=== PATIENT | male | born 1985 | race Caucasian/White ===

== ENCOUNTER 2021-05-09 15:01 | Emergency (ER) | payer BC, SELFPAY ==
[2021-05-09 15:16] VITALS: BP 141/81; PULSE 92; RESP 16; TEMP 37.3; O2SAT 100
--- NOTE | 2021-05-09 15:22 | ED.EXTPRO ---
HPI - Extremity Problem General Chief complaint: Extremity Problem,Nontraumatic Stated complaint: Left Toe Pain Time Seen by Provider: 05/09/21 15:23 Source: patient and family History of Present Illness HPI Narrative: HX GOUT. PRESENTS WITH LEFT GREAT TOE PAIN FOR THE PAST WEEK. Related Data Home Medications Medication Instructions Recorded Confirmed [id number] 1 tablet PO DAILY 03/09/19 05/09/21 omeprazole 40 mg PO DAILY 03/09/19 05/09/21 Allergies Allergy/AdvReac Type Severity Reaction Status Date / Time cefaclor [From [facility]] Allergy Rash Verified 05/09/21 15:21 Review of Systems Review of Systems: CONSTITUTIONAL: Denies fever, chills, or sweats. EYES: Denies visual changes, redness, or discharge. ENT: Denies rhinorrhea, congestion, sore throat, or otalgia. CARDIOVASCULAR: Denies chest pain, palpitations, or edema. RESPIRATORY: Denies cough or dyspnea. GASTROINTESTINAL: Denies abdominal pain, nausea, vomiting, or diarrhea. GENITOURINARY: Denies dysuria or hematuria. SKIN: Denies rash or itching. MUSCULOSKELETAL: Denies back pain, joint pain, or myalgia. NEUROLOGIC: Denies headache, numbness, or weakness. PSYCHIATRIC: Denies anxiety or depression. PMFSH Comments At time of signature, agree with nursing past medical, surgical, social and family history. There is no relevant family history pertinent to the presenting complaint Exam Narrative: GENERAL: Well-appearing, well-nourished, and in no acute distress. HEAD: Normocephalic, atraumatic. EYES: PERRLA and EOMI. ENT: Nares clear, no rhinorrhea or epistaxis. Mucous membranes moist. NECK: Supple. CHEST: Clear to auscultation. No respiratory distress. HEART: Regular rate and rhythm. No murmur heard. Normal peripheral pulses. ABDOMEN: Soft, nontender, nondistended, normal active bowel sounds. EXTREMITIES: Normal range of motion. No edema. Left great toe swollen tender to touch warm to touch consistent with gout flare SKIN: Warm, dry, no rash. NEURO: No focal deficits. Alert and oriented x3. [place] Coma Scale Eye Opening: Spontaneous 4 [place] Coma Scale Motor: Obeys Commands 6 [place] Coma Scale Verbal: Oriented 5 [place] Coma Scale Total 15 Course Course Level of Care: Express Care Visit Vital Signs Vital signs: Vital Signs Temperature 37.3 C 05/09/21 15:16 Pulse Rate 92 05/09/21 15:16 Respiratory Rate 16 05/09/21 15:16 Blood Pressure 141/81 H 05/09/21 15:16 Pulse Oximetry 100 05/09/21 15:16 Temperature 37.3 C 05/09/21 15:16 Pulse Rate 92 05/09/21 15:16 Respiratory Rate 16 05/09/21 15:16 Blood Pressure 141/81 H 05/09/21 15:16 Pulse Oximetry 100 05/09/21 15:16 Addressed elevated BP today. Today's blood pressure higher than recommended range. Discussed importance of follow -up with PCP and possible long term care administrator effects/cardiovascular events related to HTN. Currently patient denies headache, dizziness, vision changes, CP or shortness of breath. Critical dx considered and discussed with pt. Educated patient on red flag s/s and to go to ED if s/s occur. Discussed with pt when to return to Express Care or primary care provider. Pt gave verbal undertstanding, all questions were answered, and pt was agreeable to plan Critical Care Time Critical Care Time Critical Care Time: No Discharge Plan Discharge Clinical Impression: Gout Patient Disposition: Home, Self-Care Condition: Stable Instructions: Antibiotic Form, Low Purine Diet (ED), Gout (ED) Additional Instructions: Take medication as prescribed with food until gone Do not take ibuprofen while taking prescription medication Follow gout diet INCREASE FLUIDS Follow-up with primary care provider as needed If any new or worsening symptoms go to ER immediately further evaluation Prescriptions: New indomethacin 50 mg capsule 50 mg PO TID 5 Days Qty: 15 RF: 0 No Action omeprazole 40 mg Capsule,Delayed Release(Dr/Ec) 40 m
== END 2021-05-09 15:34 | disposition home or self-care (01) ==
PROVIDERS: Emergency Provider Nurse Practitioner Family; PCP Internal Medicine
DX: M10.9 Gout, unspecified (principal); K21.9 Gastro-esophageal reflux disease without esophagitis; I10 Essential (primary) hypertension
CPT/HCPCS: 99213; G0463

== ENCOUNTER 2021-05-11 10:45 | Emergency (ER) | payer BC, SELFPAY ==
--- NOTE | ~2021-05-11 | XR_ITS ---
EXAMINATION: XR toe 1st LT min 2V DATE: 05/11/2021 11:29 INDICATION: Left great toe pain. TECHNIQUE: 3 views of left great toe were obtained. COMPARISON: None. FINDINGS: Bone alignment is normal. No fracture. There is mild osteoarthritis of first metatarsophala ngeal joint. IMPRESSION: 1. Mild osteoarthritis of first metatarsophalangeal joint. Reviewed, dictated and finalized at location [facility]
[2021-05-11 10:54] VITALS: BP 149/93; PULSE 89; RESP 20; TEMP 36.8; O2SAT 100
--- NOTE | 2021-05-11 11:33 | ED.LOWEXIN ---
HPI - Extremity Injury (Lower) General Chief Complaint: Extremity Injury, Lower Stated Complaint: gout (was here Tuesday) Time Seen by Provider: 05/11/21 11:33 Source: patient History of Present Illness HPI Narrative: patient was here 2 days ago and diagnosed with gout. Patient has a history of gout and was started on Indomethacin. patient returns today with continued pain and discomfort to toe. Patient denies any injury. Patient denies any Relief with medication. Injury: Left: toes (great toe) Related Data Home Medications Medication Instructions Recorded Confirmed [id number]-[id number]-[id number] 1 tablet PO DAILY 03/09/19 05/11/21 omeprazole 40 mg PO DAILY 03/09/19 05/11/21 valsartan-hydrochlorothiazide 1 tablet PO DAILY 05/11/21 05/11/21 Allergies Allergy/AdvReac Type Severity Reaction Status Date / Time cefaclor [From [facility]] Allergy Intermediate Rash Verified 05/11/21 11:00 Review of Systems Review of Systems: CONSTITUTIONAL: Denies fever, chills, or sweats. EYES: Denies visual changes, redness, or discharge. ENT: Denies rhinorrhea, congestion, sore throat, or otalgia. CARDIOVASCULAR: Denies chest pain, palpitations, or edema. RESPIRATORY: Denies cough or dyspnea. GASTROINTESTINAL: Denies abdominal pain, nausea, vomiting, or diarrhea. GENITOURINARY: Denies dysuria or hematuria. SKIN: Denies rash or itching. MUSCULOSKELETAL: Denies back pain, joint pain, or myalgia. NEUROLOGIC: Denies headache, numbness, or weakness. PSYCHIATRIC: Denies anxiety or depression. PMFSH Comments At time of signature, agree with nursing past medical, surgical, social and family history. There is no relevant family history pertinent to the presenting complaint Exam Narrative: GENERAL: Well-appearing, well-nourished, and in no acute distress. HEAD: Normocephalic, atraumatic. EYES: PERRLA and EOMI. ENT: Nares clear, no rhinorrhea or epistaxis. Mucous membranes moist. NECK: Supple. CHEST: Clear to auscultation. No respiratory distress. HEART: Regular rate and rhythm. No murmur heard. Normal peripheral pulses. ABDOMEN: Soft, nontender, nondistended, normal active bowel sounds. EXTREMITIES: Normal range of motion. No edema. ANKLE EXAM SKIN INTACT. NORMAL DP PULSE, NORMAL CAP REFILL. NORMAL SENSATION.swelling to left great toe dip joint. SKIN: Warm, dry, no rash. NEURO: No focal deficits. Alert and oriented x3. [place] Coma Scale Eye Opening: Spontaneous 4 [place] Coma Scale Motor: Obeys Commands 6 [place] Coma Scale Verbal: Oriented 5 [place] Coma Scale Total 15 Extrem: Ankle/foot/toe images: 1. swelling tenderness warm to touch Course Course Level of Care: Express Care Visit Vital Signs Vital signs: Vital Signs Temperature 36.8 C 05/11/21 10:54 Pulse Rate 89 05/11/21 10:54 Respiratory Rate 20 05/11/21 10:54 Blood Pressure 149/93 H 05/11/21 10:54 Pulse Oximetry 100 05/11/21 10:54 Temperature 36.8 C 05/11/21 10:54 Pulse Rate 89 05/11/21 10:54 Respiratory Rate 20 05/11/21 10:54 Blood Pressure 149/93 H 05/11/21 10:54 Pulse Oximetry 100 05/11/21 10:54 Addressed elevated BP today. Today's blood pressure higher than recommended range. 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 Currently patient denies headache, dizziness, vision changes, CP or shortness of breath. MDM - Extremity Injury (Lower) Lab Data Labs: . Mild osteoarthritis of first metatarsophalangeal joint. Discharge Plan Discharge Clinical Impression: Osteoarthritis Patient Disposition: Home, Self-Care Condition: Stable Instructions: Antibiotic Form, Osteoarthritis (DC) Additional Instructions: Discontinue indomethacin Take steroids as prescribed with food until gone May take Tylenol alternate with ibuprofen as needed for pain or discomfort Follow-up with primary care provider for referral to yarn spooler as soon as possible If any new
== END 2021-05-11 11:55 | disposition home or self-care (01) ==
PROVIDERS: Emergency Provider Nurse Practitioner Family; PCP Internal Medicine
DX: M19.072 Primary osteoarthritis, left ankle and foot (principal); I10 Essential (primary) hypertension; K21.9 Gastro-esophageal reflux disease without esophagitis
CPT/HCPCS: 73660; 99213; G0463

== ENCOUNTER 2021-09-09 11:52 | Emergency (ER) | payer BC, SELFPAY ==
[2021-09-09 11:56] VITALS: BP 145/112; PULSE 103; RESP 24; TEMP 38.7; O2SAT 100
--- NOTE | 2021-09-09 12:16 | ED.URI ---
HPI - URI/Sore Throat General Chief Complaint: Fever Stated Complaint: afternoon fevers Time Seen by Provider: 09/09/21 12:16 Source: patient, RN notes reviewed and old records reviewed Mode of arrival: ambulatory Limitations: no limitations History of Present Illness HPI Narrative: 35 year old male who present to [facility] care with complaints of 3 day history of intermittent fevers, chills,body aches and headache,and scratchy throat. Patient reports that he did do a home COVID test last night which was negative. Patient states that he does work in the heat and he has been maintaining hydration, drinks abundance of water daily. Patient reports that he has had HLR PropertiesID shot, elicited complaint: fever, sore throat and other (headache) Onset (ago): day(s) (2) Treatments prior to arrival: ibuprofen Related Data Home Medications Medication Instructions Recorded Confirmed omeprazole 40 mg capsule,delayed 40 mg PO DAILY 03/09/19 09/09/21 release valsartan 320 1 tablet PO DAILY 05/11/21 09/09/21 mg-hydrochlorothiazide 25 mg tablet amlodipine 10 mg tablet 10 mg PO DAILY 09/09/21 09/09/21 colchicine 0.6 mg tablet 0.6 mg PO DAILY 09/09/21 09/09/21 Allergies Allergy/AdvReac Type Severity Reaction Status Date / Time cefaclor [From [facility]] Allergy Intermediate Rash Verified 09/09/21 12:13 Review of Systems Review of Systems: CONSTITUTIONAL: Positive fever, chills, or sweats. EYES: Denies visual changes, redness, or discharge. ENT: Denies rhinorrhea, congestion, positive scratchy throat, no otalgia. CARDIOVASCULAR: Denies chest pain, palpitations, or edema. RESPIRATORY: Denies cough or dyspnea. GASTROINTESTINAL: Denies abdominal pain, nausea, vomiting, or diarrhea. GENITOURINARY: Denies dysuria or hematuria. SKIN: Denies rash or itching. MUSCULOSKELETAL: Denies back pain, joint pain, body aches NEUROLOGIC: Positive headache, no numbness, or weakness. PSYCHIATRIC: Denies anxiety or depression. [facility] Past Medical History Medical History (Updated 09/10/21 @ 23:06 by Ruthie Fournier NP) Abscess, perirectal surgery Dislocation of right shoulder joint Fracture of right upper extremity surgery right arm Fracture of right wrist Gout Hypertension Surgical History Surgical History (Updated 09/09/21 @ 12:51 by Ruthie Fournier NP) History of tonsillectomy Social History Social History (Updated 09/09/21 @ 12:41 by Ruthie Fournier NP) Smoking status: Never smoker Alcohol intake: current Alcohol use details: social Substance use: never Living arrangements: with family Gender identity (if verbalized by the patient): Male Comments At time of signature, agree with nursing past medical, surgical, social and family history. There is no relevant family history pertinent to the presenting complaint Exam Narrative: GENERAL: Ill-appearing, well-nourished, and in no acute distress. HEAD: Normocephalic, atraumatic. EYES: PERRLA and EOMI. ENT: Nares clear, no rhinorrhea or epistaxis. Mucous membranes moist.TM's normal, throat red no lesions or exudates no tonsils present . NECK: Supple. lymphadenopathy CHEST: Clear to auscultation. No respiratory distress.SAO2 100% on room air HEART: Regular rate and rhythm. No murmur heard. Normal peripheral pulses. ABDOMEN: Soft, nontender, nondistended, normal active bowel sounds. EXTREMITIES: Normal range of motion. No edema. SKIN: Warm, dry, no rash. NEURO: No focal deficits. Alert and oriented x3. Course Course Level of Care: Express Care Visit Vital Signs Vital signs: Vital Signs Temperature 38.7 C H 09/09/21 11:56 Pulse Rate 103 H 09/09/21 11:56 Respiratory Rate 24 H 09/09/21 11:56 Blood Pressure 145/112 H 09/09/21 11:56 Pulse Oximetry 100 09/09/21 11:56 Oxygen Delivery Room Air 09/09/21 11:56 Temperature 38.7 C H 09/09/21 11:56 Pulse Rate 103 H 09/09/21 11:56 Respiratory Rate 24 H 09/09/21 11:56 Blood Pressu
[2021-09-09 12:51] VITALS: BP 137/75
== END 2021-09-09 13:14 | disposition home or self-care (01) ==
PROVIDERS: Emergency Provider Registered Nurse
DX: J02.0 Streptococcal pharyngitis (principal); Z20.822 Contact with and (suspected) exposure to COVID-19; I10 Essential (primary) hypertension; M10.9 Gout, unspecified
CPT/HCPCS: 87081; 87426; 87804; 87880; 99213; C9803; G0463

== ENCOUNTER 2022-03-27 12:27 | Emergency (ER) | payer BC, SELFPAY ==
[2022-03-27 13:41] VITALS: BP 136/94; PULSE 83; RESP 16; TEMP 37.1; O2SAT 99
--- NOTE | 2022-03-27 14:30 | ED.URI ---
HPI - URI/Sore Throat General Chief Complaint: Upper Respiratory Infection Stated Complaint: slight fever,sore throat Time Seen by Provider: 03/27/22 14:30 History of Present Illness HPI Narrative: 36-year-old male presented for complaint of sore throat, fever, and congestion. Onset yesterday. Endorses temperature 99.7?. Denies shortness of breath, wheezing, nausea, vomiting, diarrhea. Not taking anything for symptoms. Endorses his 3 children have tested positive and started treatment for strep throat. Related Data Home Medications Medication Instructions Recorded Confirmed omeprazole 40 mg capsule,delayed 40 mg PO DAILY 03/09/19 03/27/22 release valsartan 320 1 tablet PO DAILY 05/11/21 03/27/22 mg-hydrochlorothiazide 25 mg tablet amlodipine 10 mg tablet 10 mg PO DAILY 09/09/21 03/27/22 colchicine 0.6 mg tablet 0.6 mg PO DAILY 09/09/21 03/27/22 allopurinol 300 mg tablet 300 mg PO DAILY 03/27/22 03/27/22 Allergies Allergy/AdvReac Type Severity Reaction Status Date / Time cefaclor [From [facility]] Allergy Intermediate Rash Verified 03/27/22 14:33 Review of Systems Review of Systems: per HPI [facility] Past Medical History Medical History Abscess, perirectal surgery Dislocation of right shoulder joint Fracture of right upper extremity surgery right arm Fracture of right wrist Gout Hypertension Surgical History Surgical History History of tonsillectomy Social History Social History Smoking status: Never smoker Alcohol intake: current Alcohol use details: social Substance use: never Gender identity (if verbalized by the patient): Male Exam Narrative: GENERAL: well-appearing, no acute distress. EYES: conjunctivae clear ENT: Mucous membranes moist. TMs pearly boyd with normal light reflex bilaterally; no tragal tenderness. Oropharynx erythematous with lesion to soft palate. Tonsils absent. No drooling, no hoarseness, no trismus, uvula midline. No tripod positioning, hot potato voice, or soft palate swelling. NECK: Supple. No lymphadenopathy CHEST: Clear to auscultation, breath sounds equal. No respiratory distress, speaks in full sentences. HEART: Regular rate and rhythm. No murmur heard. SKIN: Warm, dry, no rash. NEURO: Alert and oriented x3. Course Course Emergency Course: Patient is aware of diagnosis, understands and agrees to treatment plan. Anticipatory guidance given. Patient agrees to follow-up as directed and is aware of reasons to seek care at the emergency department. Portions of this record may have been created with voice recognition software Level of Care: Express Care Visit Vital Signs Vital signs: Vital Signs Temperature 98.7 F 03/27/22 13:41 Pulse Rate 83 03/27/22 13:41 Respiratory Rate 16 03/27/22 13:41 Blood Pressure 136/94 H 03/27/22 13:41 Pulse Oximetry 99 03/27/22 13:41 Temperature 98.7 F 03/27/22 13:41 Pulse Rate 83 03/27/22 13:41 Respiratory Rate 16 03/27/22 13:41 Blood Pressure 136/94 H 03/27/22 13:41 Pulse Oximetry 99 03/27/22 13:41 MDM - URI/Sore Throat MDM Narrative Medical decision making narrative: Given known exposure, will treat for strep. Advise supportive treatments. Patient is appropriate for outpatient treatment and follow-up. Differential Diagnosis Differential diagnosis: Likely upper respiratory infection, viral infection and pharyngitis Discharge Plan Discharge Clinical Impression: Pharyngitis Patient Disposition: Home, Self-Care Condition: Stable Instructions: Antibiotic Form, Strep Throat (ED) Additional Instructions: - Take the antibiotic as directed. Fever and sore throat typically resolve within one to three days. Most patients can return to work after 12 to 24 hours of antibiotic therapy, provided yo
== END 2022-03-27 14:46 | disposition home or self-care (01) ==
PROVIDERS: Emergency Provider Nurse Practitioner Family
DX: J02.9 Acute pharyngitis, unspecified (principal); M10.9 Gout, unspecified; I10 Essential (primary) hypertension
CPT/HCPCS: 99213; G0463

== ENCOUNTER 2023-05-04 16:46 | Emergency (ER) | payer BC, SELFPAY ==
[2023-05-04 16:56] VITALS: BP 149/85; PULSE 98; RESP 16; TEMP 37.4; O2SAT 98
--- NOTE | 2023-05-04 17:32 | ED.URI ---
HPI - URI/Sore Throat General Chief Complaint: Upper Respiratory Infection Stated Complaint: Sore Throat Time Seen by Provider: 05/04/23 17:33 Source: patient, RN notes reviewed and old records reviewed Mode of arrival: ambulatory Limitations: no limitations History of Present Illness HPI Narrative: 37 year old male who presents to [facility] care with complaints of sore throat and some body aches which started yesterday with low grade fever. Patient reports that daughter is at home with strep throat. Patient reports that he has been taking DayQuil and also using cough drops. MD elicited complaint: fever (low grade), sore throat and other (body aches) Onset (ago): day(s) (2 of symptoms) Pain scale (0-10): 7 Able to tolerate fluids by mouth: Yes Treatments prior to arrival: other (DayQuil and cough drops) Related Data Home Medications Medication Instructions Recorded Confirmed omeprazole 40 mg capsule,delayed 40 mg PO DAILY 03/09/19 03/27/22 release valsartan 320 1 tablet PO DAILY 05/11/21 03/27/22 mg-hydrochlorothiazide 25 mg tablet amlodipine 10 mg tablet 10 mg PO DAILY 09/09/21 03/27/22 colchicine 0.6 mg tablet 0.6 mg PO DAILY 09/09/21 03/27/22 allopurinol 300 mg tablet 300 mg PO DAILY 03/27/22 03/27/22 Allergies Allergy/AdvReac Type Severity Reaction Status Date / Time cefaclor [From [facility]] Allergy Intermediate Rash Verified 03/27/22 14:33 Review of Systems Review of Systems: CONSTITUTIONAL: Reports malaise, chills, sweats, or fever. EYES: Denies visual changes, redness, or discharge. ENT: Reports rhinorrhea, congestion, sinus pain, no otalgia and positive for sore throat. CARDIOVASCULAR: Denies chest pain, palpitations, or edema. RESPIRATORY: Reports no acute cough.? Denies dyspnea. GASTROINTESTINAL: Denies abdominal pain, nausea, vomiting, diarrhea SKIN: Denies rash or itching. MUSCULOSKELETAL:Reports myalgia. NEUROLOGIC: Denies headache. All systems reviewed & are unremarkable except as noted in HPI and below PMFSH Past Medical History Medical History Abscess, perirectal surgery Dislocation of right shoulder joint Fracture of right upper extremity surgery right arm Fracture of right wrist Gout Hypertension Surgical History Surgical History History of tonsillectomy Social History Social History Smoking status: Never smoker Alcohol intake: current Alcohol use details: social Substance use: never Living arrangements: with family Gender identity (if verbalized by the patient): Male Comments At time of signature, agree with nursing past medical, surgical, social and family history. There is no relevant family history pertinent to the presenting complaint Exam Narrative: GENERAL: Well-appearing, well-nourished, and in no acute distress. HEAD: Normocephalic EYES: PERRLA, conjunctivae clear ENT: Nares clear, turbinates edematous and erythematous, clear discharge. Mucous membranes moist. TM pearly boyd with dull light reflex bilaterally; no tragal tenderness. Oropharynx erythematous without lesions. Tonsils not present and throat without exudate, no drooling, no hoarseness, no trismus, uvula midline.reports painful swallowing NECK: Supple. No lymphadenopathy CHEST: Clear to auscultation, breath sounds equal. No wheezing, rhonchi, rales, or stridor. No respiratory distress, speaks in full sentences.SAO2 98% on room air HEART: Regular rate and rhythm. No murmur heard. SKIN: Warm, dry, no rash. NEURO: Alert and oriented x3. PSYCH: Normal mood and affect Course Course Emergency Course: Patient is aware of diagnosis, understands and agrees to treatment plan.? Anticipatory guidance given.? Patient agrees to follow-up as directed and is aware of reasons to seek care at the emergency de
== END 2023-05-04 18:05 | disposition home or self-care (01) ==
PROVIDERS: Emergency Provider Registered Nurse
DX: J10.1 Influenza due to other identified influenza virus with other respiratory manifestations (principal); Z20.822 Contact with and (suspected) exposure to COVID-19; I10 Essential (primary) hypertension; M10.9 Gout, unspecified
CPT/HCPCS: 87081; 87426; 87804; 87880; 99213; G0463